=== PATIENT | female | born 1950 | race Caucasian/White ===

== ENCOUNTER 2021-04-03 06:42 | Day surgery (SDC) | payer MEDICARE, OTHER ==
[2021-04-03] MEDS ORDERED: Midazolam 1 MG/ML 2 ML SDV IV ONE (06:43)
[2021-04-03] MEDS ORDERED: fentaNYL 100 MCG/2 ML SDV IV ONE (06:43)
[2021-04-03] MEDS ORDERED: Ondansetron 4 MG/2 ML SDV IVPUSH ONE (06:43)
[2021-04-03] MEDS ORDERED: Sodium Chloride 0.9% 10 ML Syringe IV ONE (06:43)
[2021-04-03] MEDS ORDERED: Lactated Ringers 1,000 ML IV PRN (06:45)
[2021-04-03] MEDS: Sodium Chloride 0.9% 10 ML Syringe FLUSH PRN (07:25)
[2021-04-03] MEDS: acetaZOLAMIDE 500 MG Cap.ER PO ONE (09:00)
== END 2021-04-03 09:11 | disposition home or self-care (01) ==
LOC: FB.SDS 06:42
PROVIDERS: ATTEND Ophthalmology
DX: H25.13 Age-related nuclear cataract, bilateral (principal); H35.373 Puckering of macula, bilateral; H40.013 Open angle with borderline findings, low risk, bilateral; H04.123 Dry eye syndrome of bilateral lacrimal glands; H52.13 Myopia, bilateral; H52.223 Regular astigmatism, bilateral; Z79.899 Other long term (current) drug therapy; Z87.891 Personal history of nicotine dependence
CPT/HCPCS: 00142-QZ; A9270-GY; J2250; J2405; J3010; V2632

== ENCOUNTER 2021-05-15 08:27 | Day surgery (SDC) | payer MEDICARE, OTHER ==
[~2021-05-15 08:27] MED LIST: Lactated Ringers 1,000 ML IV PRN; Sodium Chloride 0.9% 10 ML Syringe FLUSH PRN; acetaZOLAMIDE 500 MG Cap.ER PO ONE
[2021-05-15] MEDS ORDERED: fentaNYL 100 MCG/2 ML SDV IV ONE (08:28)
[2021-05-15] MEDS ORDERED: Midazolam 1 MG/ML 2 ML SDV IV ONE (08:28)
[2021-05-15] MEDS ORDERED: Sodium Chloride 0.9% 10 ML Syringe FLUSH PRN (08:30)
[2021-05-15] MEDS ORDERED: Lactated Ringers 1,000 ML IV PRN (08:30)
[2021-05-15] MEDS ORDERED: Tetracaine HCl/PF 0.5% 4 ML Bottle ONE (09:46)
[2021-05-15] MEDS ORDERED: Dexamethasone/Tobramycin 0.1-0.3% Ophth Susp 2.5 ML Bottle ONE (10:07)
[2021-05-15] MEDS ORDERED: Brimonidine 0.2% Ophth Soln 5 ML Bottle ONE (10:07)
[2021-05-15] MEDS ORDERED: acetaZOLAMIDE 500 MG Cap.ER PO ONE (10:30)
== END 2021-05-15 10:40 | disposition home or self-care (01) ==
LOC: FB.SDS 08:27
PROVIDERS: ATTEND Ophthalmology
DX: H25.13 Age-related nuclear cataract, bilateral (principal); H35.373 Puckering of macula, bilateral; H40.013 Open angle with borderline findings, low risk, bilateral; H04.123 Dry eye syndrome of bilateral lacrimal glands; H52.13 Myopia, bilateral; H52.223 Regular astigmatism, bilateral; E78.5 Hyperlipidemia, unspecified; Z87.891 Personal history of nicotine dependence
CPT/HCPCS: 00142-QZ; A9270-GY; J2250; J3010; V2632